=== PATIENT | male | born 1955 | race Caucasian/White ===

== ENCOUNTER 2019-03-28 11:57 | Inpatient (IN) | payer OTHER ==
[~2019-03-28] VITALS: Ht 193 cm; Wt 134.0 kg
[2019-03-28] VITALS (13 sets, daily range): BP systolic 138–187; BP diastolic 101–128
[~2019-03-28 11:57] MED LIST: ELIQUIS2.5 MG PO; LASIX40 MG PO; PROPANOLOL PO
[2019-03-28] MEDS ORDERED: DIPHENHYDRAMINE HCL 25 MG CAP ONE (12:59)
[2019-03-28] MEDS ORDERED: ALPRAZOLAM 0.5 MG TAB ONE (12:59)
[2019-03-28] MEDS ORDERED: VERAPAMIL HCL 2.5 MG/ML 2 ML VIAL ONE (16:13)
[2019-03-28] MEDS ORDERED: MIDAZOLAM HCL 2 MG/2 ML VIAL ONE ×2 (16:13→16:44)
[2019-03-28] MEDS ORDERED: SODIUM CHLORIDE 0.9% 1000ML 1,000 ML ONE (16:13)
[2019-03-28] MEDS ORDERED: FENTANYL CITRATE/PF 100MCG/2 ML INJ ONE (16:13)
[2019-03-28] MEDS ORDERED: HEPARIN SOD (PORCINE) 1000 UNIT/ML 30ML ONE (16:15)
[2019-03-28] MEDS ORDERED: HEPARIN SOD/SOD CHLORIDE 2,000 ML ONE (16:15)
[2019-03-28] MEDS ORDERED: IOPAMIDOL 370 MG/ML 200 ML INFUS..BTL INJ ONE (16:15)
[2019-03-28] MEDS ORDERED: LIDOCAINE HCL 2% LOCAL 20 ML VIAL ONE (16:15)
[2019-03-28] MEDS ORDERED: SODIUM CHLORIDE 0.9% 50ML 50 ML ONE (16:46)
[2019-03-28] MEDS ORDERED: BIVALRIUDIN 250 MG/VIAL VIAL IV ONE (16:46)
[2019-03-28] MEDS ORDERED: PRASUGREL 10 MG TAB ONE (17:00)
[2019-03-28] MEDS ORDERED: ASPIRIN 325 MG TAB ONE (17:00)
[2019-03-28] MEDS ORDERED: HYDRALAZINE HCL 20 MG/ML VIAL ONE (17:06)
--- NOTE | 2019-03-28 17:15 | NUR ---
food and drink provided family at bedside. VS trending w/ diastolic trending 100-105. Toprol XL 50mg given as now order. + neurovascular function to right wrist present. slight bilateral purple eddie to fingers. pt states , " it started this morning before i got here. it doesn't hurt " continue to be monitored.
[2019-03-28] MEDS ORDERED: METOPROLOL TARTRATE INJ 1 MG/ML VIAL IV PRN (18:00)
[2019-03-28] MEDS ORDERED: METOPROLOL SUCCINATE 50 MG TAB XL PO ONE (18:00)
[2019-03-28] MEDS ORDERED: LABETALOL HCL 5 MG/ML 20ML VIAL IV PRN (18:00)
[2019-03-28] MEDS ORDERED: HYDRALAZINE HCL 20 MG/ML VIAL IV PRN (18:00)
--- NOTE | 2019-03-28 18:45 | NUR ---
bedside report given to Maggie BASHIR. Alert oriented and appropriate, PERRLA, respirations even and unlabored to room air. Pulses x4 extremities equal and strong. Right radial TR band intact w/ +neurovascular function. Cap fill brisk < 3 sec. Skin warm and dry integrity appears intact. IV 20g to left AC presents healthy w/o s/s of infiltration or complaint. Abdomen soft and supple. pt offered toileting, denies need to urinate or defecate. No personal affects with patient. Family not available at this time. Pt verbalizes understanding of POC of TR band removal and BP management. Patient transferred from PACU 20 by sleep lab technician escort on bed, to ICU 189. Currently w/o complaint of pain or need. -cgf
[2019-03-28] MEDS ORDERED: NITROGLYCERIN 0.4 MG SUBL SL PRN (19:30)
[2019-03-28] MEDS ORDERED: MORPHINE SULFATE INJ 4 MG/ML INJ 1ML IV PRN (19:30)
[2019-03-28] MEDS ORDERED: ACETAMINOPHEN 325 MG TAB PO PRN (19:30)
[2019-03-28] MEDS ORDERED: HYDROCODONE/APAP 5MG-325MG TAB PO PRN (19:30)
[2019-03-28] MEDS ORDERED: SODIUM CHLORIDE 0.9% 1000ML 500 ML IV ONE (19:45)
[2019-03-28] MEDS ORDERED: ATORVASTATIN 20 MG TAB PO SCH (21:00)
[2019-03-28] MEDS ORDERED: ATORVASTATIN 40 MG TAB PO SCH (21:00)
[2019-03-29] VITALS (10 sets, daily range): BP systolic 132–161; BP diastolic 87–126
[2019-03-29] MEDS ORDERED: APIXABAN 5 MG TABLET PO SCH (09:00)
[2019-03-29] MEDS ORDERED: CLOPIDOGREL BISULFATE 75 MG TAB PO SCH (09:00)
[2019-03-29] MEDS ORDERED: METOPROLOL SUCCINATE 50 MG TAB XL PO SCH (09:00)
[2019-03-29] MEDS ORDERED: NON-FORMULARY MEDICATION PO SCH (09:00)
[2019-03-29] MEDS ORDERED: FUROSEMIDE 40 MG TAB PO SCH (09:00)
== END 2019-03-29 09:49 | disposition home or self-care (01) | DRG 247 ==
LOC: CATH LAB 11:57 → ICU 19:02
PROVIDERS: ADMIT Internal Medicine Interventional Cardiology; ATTEND Internal Medicine Interventional Cardiology
PROC: 027034Z Dilation of Coronary Artery, One Artery with Drug-eluting Intraluminal Device, Percutaneous Approach (ICD-10-PCS; principal; 2019-03-28)
PROC: 4A023N7 Measurement of Cardiac Sampling and Pressure, Left Heart, Percutaneous Approach (ICD-10-PCS; 2019-03-28)
PROC: B2111ZZ Fluoroscopy of Multiple Coronary Arteries using Low Osmolar Contrast (ICD-10-PCS; 2019-03-28)
PROC: B2151ZZ Fluoroscopy of Left Heart using Low Osmolar Contrast (ICD-10-PCS; 2019-03-28)
DX: I25.10 Atherosclerotic heart disease of native coronary artery without angina pectoris (principal); I10 Essential (primary) hypertension; Z85.828 Personal history of other malignant neoplasm of skin; Z85.528 Personal history of other malignant neoplasm of kidney
CPT/HCPCS: 76937; 92928; 93458; 99152; 99153; C1874; J0360; J0583; J1644; J2001; J2250; J3010; J7030; Q9967

== ENCOUNTER 2022-02-02 10:05 | Emergency (ER) | payer MEDICARE, OTHER ==
[~2022-02-02] VITALS: Ht 193 cm; Wt 133.8 kg
[2022-02-02] MEDS ORDERED: SODIUM CHLORIDE FLUSH 10 ML SYR IV PRN (10:45)
[2022-02-02 10:52] LABS: BASOPHILS % 0.4 % (0.0-1.0); EOSINOPHILS # (AUTO) 0.1 (0.0-0.4); EOSINOPHILS % 1.2 % (0.0-6.0); HEMATOCRIT 44.8 % (38.2-49.6); HEMOGLOBIN 14.5 g/dL (14.0-18.0); LYMPHOCYTES # (AUTO) 1.5 (1.0-3.2); LYMPHOCYTES % 19.5 % (18.0-39.1); MEAN CORPUSCULAR HEMOGLOBIN 31.8 pg (28-32); MEAN CORPUSCULAR HGB CONC 32.4 g/dL (31-35); MEAN CORPUSCULAR VOLUME 98.2 fL (81-99); MONOCYTES # (AUTO) 0.5 (0.2-0.8); MONOCYTES % 6.7 % (4.4-11.3); NEUTROPHILS # (AUTO) 5.6 (2.1-6.9); NEUTROPHILS % 71.4 % (38.7-80.0); PLATELET COUNT 239 x10e3/uL (140-360); RED BLOOD COUNT 4.56 x10e6/uL (4.3-5.7); RED CELL DISTRIBUTION WIDTH 13.2 % (11.7-14.4)
[2022-02-02 11:07] LABS: INR 0.99
[2022-02-02 11:08] LABS: PARTIAL THROMBOPLASTIN TIME 27.7 seconds (23.8-35.5)
[2022-02-02 11:10] LABS: CLARITY,URINE CLEAR (CLEAR); COLOR,URINE YELLOW (YELLOW); KETONES,URINE NEGATIVE (NEGATIVE); LEUKOCYTE ESTERASE ,URINE NEGATIVE (NEGATIVE); NITRITE,URINE NEGATIVE (NEGATIVE); PROTEIN,URINE DIPSTICK NEGATIVE (NEGATIVE); URINE UROBILINOGEN 0.2 mg/dL (0.2 - 1)
[2022-02-02 11:16] LABS: ALANINE AMINOTRANSFERASE 19 IU/L (0-55); ALBUMIN 3.8 g/dL (3.5-5.0); ALBUMIN/GLOBULIN RATIO 1.2 (0.8-2.0); ALKALINE PHOSPHATASE 76 IU/L (40-150); ANION GAP 15.2 mmol/L (8-16); BLOOD UREA NITROGEN 18 mg/dL (7-26); BUN/CREATININE RATIO 20 (6-25); CALCIUM 9.3 mg/dL (8.4-10.2); CARBON DIOXIDE 24 mmol/L (22-29); CHLORIDE 107 mmol/L (98-107); CREATININE, SERUM 0.91 mg/dL (0.72-1.25); GLUCOSE 99 mg/dL (74-118); POTASSIUM 4.2 mmol/L (3.5-5.1); SODIUM 142 mmol/L (136-145)
[2022-02-02 11:20] LABS: BACTERIA,URINE FEW /HPF; EPITHELIAL CELLS,URINE RARE /LPF; RBC,URINE 0-5 /HPF (0-5); WBC,URINE (MAN) 0-5 /HPF (0-5)
[2022-02-02] MEDS ORDERED: HYDROCODONE/APAP 5MG-325MG TAB PO ONE (13:15)
[2022-02-02] MEDS ORDERED: ONDANSETRON ODT4 MG PO ×2 (13:27→13:35)
[2022-02-02] MEDS ORDERED: ACETAMINOPHEN-1 EAC4 PO ×2 (13:27→13:35)
[2022-02-02 15:02] VITALS: BP 109/74
== END 2022-02-02 14:30 | disposition home or self-care (01) ==
LOC: ER 10:18
DX: S49.001A Unspecified physeal fracture of upper end of humerus, right arm, initial encounter for closed fracture (principal); S06.9X1A Unspecified intracranial injury with loss of consciousness of 30 minutes or less, initial encounter; I69.351 Hemiplegia and hemiparesis following cerebral infarction affecting right dominant side; I69.320 Aphasia following cerebral infarction; S00.01XA Abrasion of scalp, initial encounter; S10.81XA Abrasion of other specified part of neck, initial encounter; S80.811A Abrasion, right lower leg, initial encounter; R55 Syncope and collapse; I48.91 Unspecified atrial fibrillation; I25.10 Atherosclerotic heart disease of native coronary artery without angina pectoris; W18.39XA Other fall on same level, initial encounter
CPT/HCPCS: 36415; 70450; 71045; 72125; 80053; 81001; 84484; 85025; 85610; 85730; 93005; 94760; 99284